=== PATIENT | female | born 1995 | race African-American/Black ===

== ENCOUNTER 2019-03-02 16:06 | Emergency (ER) | payer MEDICAID ==
[~2019-03-02] VITALS: Ht 165.1 cm; Wt 64.0 kg
[2019-03-02] MEDS ORDERED: KETOROLAC 60MG/2ML VIAL IM ONE (17:00)
[2019-03-02 17:43] VITALS: BP 120/60
[2019-03-02] MEDS ORDERED: ACETAMINOPHEN 500MG TABLET PO ONE (18:45)
== END 2019-03-02 20:20 | disposition home or self-care (01) ==
LOC: ER 16:06
DX: S89.82XA Other specified injuries of left lower leg, initial encounter (principal); M79.18 Myalgia, other site; F41.9 Anxiety disorder, unspecified; F32.9 Major depressive disorder, single episode, unspecified; F12.10 Cannabis abuse, uncomplicated; V03.90XA Pedestrian on foot injured in collision with car, pick-up truck or van, unspecified whether traffic or nontraffic accident, initial encounter; Y93.89 Activity, other specified; Y92.481 Parking lot as the place of occurrence of the external cause
CPT/HCPCS: 71045; 81025; 96372; 99283; J1885